=== PATIENT | female | born 1980 | race Caucasian/White ===

== ENCOUNTER 2018-06-29 16:45 | Emergency (ER) | payer SELFPAY ==
[~2018-06-29] VITALS: Ht 172.7 cm; Wt 79.8 kg
[2018-06-29 16:55] VITALS: BP_SYST 150
[2018-06-29] MEDS ORDERED: ALBUTEROL SULFATE 0.083% 2.5 MG/3 ML VIAL.NEB INH ONE ×2 (17:15→19:00)
[2018-06-29 19:21] VITALS: BP_SYST 150
== END 2018-06-29 19:21 | disposition home or self-care (01) ==
LOC: SED 16:45
DX: J40 Bronchitis, not specified as acute or chronic (principal); R03.0 Elevated blood-pressure reading, without diagnosis of hypertension; Z88.5 Allergy status to narcotic agent; Z98.51 Tubal ligation status
CPT/HCPCS: 71045; 81002; 93005; 94640; 99284; J7613